=== PATIENT | female | born 1985 | race Caucasian/White ===

== ENCOUNTER 2020-03-20 10:00 | Outpatient (RCR) | payer OTHER ==
[~2020-03-20] VITALS: Ht 162 cm; Wt 97.7 kg
[~2020-03-20 10:00] MED LIST: PRD20T PO
== END 2020-03-20 10:01 | disposition home or self-care (01) ==
LOC: PREOP 10:00
PROVIDERS: ATTEND Surgery
DX: Z01.818 Encounter for other preprocedural examination (principal); A63.0 Anogenital (venereal) warts

== ENCOUNTER 2020-03-26 10:31 | Day surgery (SDC) | payer OTHER ==
[~2020-03-26] VITALS: Ht 162 cm; Wt 97.7 kg
[2020-03-26 10:36] VITALS: BP 137/89
[2020-03-26] MEDS ORDERED: LACTATED RINGERS 1,000 ML IV ONE (10:48)
[2020-03-26] MEDS ORDERED: LACTATED RINGERS 1,000 ML IV STA (10:56)
[2020-03-26] MEDS ORDERED: proPOfol 200 MG/20 ML (DIPRIVAN) VIAL IV ONE ×2 (11:13→11:39)
[2020-03-26] MEDS ORDERED: MIDAZOLAM 2 MG/2 ML (VERSED) VIAL ONE (11:13)
--- NOTE | 2020-03-26 11:29 | Progress Note-Pre Operative ---
Pre-Operative Progress Note H&P Reviewed The H&P was reviewed, patient examined and no changes noted. Date Seen by Provider: Mar 26, 2020 Time Seen by Provider: : Date H&P Reviewed: Mar 26, 2020 Time H&P Reviewed: : Pre-Operative Diagnosis: anogenital lesion DALLAS BANKS DO Mar 26, 2020 11:29
[2020-03-26 12:00] VITALS: BP 99/77
--- NOTE | 2020-03-26 12:09 | Progress Note-Post Operative ---
Post-Operative Progess Note Surgeon (s)/Rice Cleaning Machine Tender (s) Surgeon DALLAS BANKS DO [employer] Cleaning Machine Tender: na Pre-Operative Diagnosis anogenital lesion Post-Operative Diagnosis rectosigmoid polyp, diverticulosis Procedure & Operative Findings Date of Procedure 03/26/20 Procedure Performed/Findings colonoscopy with hot bx polypectomy x 1 Anesthesia Type per mda Estimated Blood Loss Estimated blood loss (mL): none Specimens/Packing Specimens Removed rectosigmoid polyp DALLAS BANKS DO Mar 26, 2020 12:09
--- NOTE | 2020-03-26 12:10 | Discharge Inst-Simple/Standard ---
Discharge Inst-Standard Patient Instructions/Follow Up Plan of Care/Instructions/FU: 2-3 weeks Praneeth Activity as Tolerated: Yes Discharge Diet: Regular Diet (high fiber) DALLAS BANKS DO Mar 26, 2020 12:10
[2020-03-26 12:25] VITALS: BP 133/78
[2020-03-26 12:35] VITALS: BP 133/78
--- NOTE | 2020-03-26 15:11 | Anesthesia-General Post-Op ---
MAC Patient Condition Mental Status/LOC: Same as Preop Cardiovascular: Satisfactory Nausea/Vomiting: Absent Respiratory: Satisfactory Pain: Controlled Complications: Absent Post Op Complications Complications None Follow Up Care/Instructions Patient Instructions None needed. Anesthesiology Discharge Order Discharge Order Patient was seen after the procedure and she was doing well, no complaints, stable vital signs, no apparent adverse anesthesia problems. BRENDAN LINTON DO Mar 26, 2020 15:11
--- NOTE | 2020-03-26 21:46 | OPERATIVE REPORT ---
DATE OF SERVICE: 03/26/2020 PREOPERATIVE DIAGNOSIS: Anogenital lesion. POSTOPERATIVE DIAGNOSIS: Rectosigmoid polyp. PROCEDURE: Colonoscopy with hot biopsy polypectomy. SURGEON: Dallas Dacosta DO ANESTHESIA: Per MDA. ESTIMATED BLOOD LOSS: None. COMPLICATIONS: None. INDICATIONS: The patient is a 34-year-old female with recent anginal lesion that was removed, which made her higher risk for anogenital cancer. She was referred to me due to this for colonoscopy. The patient understands risks and benefits of procedure and wished to proceed with procedure. Consent was signed in the chart. DESCRIPTION OF PROCEDURE: The patient was taken to the endoscopy suite, placed in left lateral recumbent position. Timeout was performed. Digital rectal exam was performed. No palpable polyps, masses or ulcerations. Scope was inserted in the rectum, advanced all the way to cecum with minimal difficulty. Prep was adequate. Scope was then slowly retracted back. There were no polyps, masses or ulcerations within the cecum, ascending, transverse, descending and sigmoid colon. Through the descending and sigmoid colon, a minimal amount of diverticulosis was present. At the rectosigmoid junction, a small polyp was present, which hot biopsy polypectomy was performed. Scope was continuously retracted back into the rectum, where it was also retroflexed noting no other pathology. Scope was returned to its normal position, slowly withdrawn until completely removed. The patient tolerated procedure well without any complications. She was taken to the recovery room in stable condition. RECOMMENDATIONS: The patient to follow up on the pathology in 2 weeks. We would recommend repeat colonoscopy likely in 5 years. If any issues before that, be seen at that time. We would also recommend high fiber diet due to the diverticulosis. Job ID: [id number] DocumentID: [id number] Dictated Date: 03/26/2020 14:29:00 Ic Engineer Date: 03/26/2020 21:45:50 Dictated By: DALLAS DACOSTA DO
== END 2020-03-26 12:35 | disposition home or self-care (01) ==
LOC: ENDO 10:31
PROVIDERS: ATTEND Surgery
DX: K63.5 Polyp of colon (principal); E66.9 Obesity, unspecified; Z68.37 Body mass index [BMI] 37.0-37.9, adult; L40.9 Psoriasis, unspecified; F17.210 Nicotine dependence, cigarettes, uncomplicated; Z88.2 Allergy status to sulfonamides; Z82.49 Family history of ischemic heart disease and other diseases of the circulatory system; Z83.3 Family history of diabetes mellitus
CPT/HCPCS: 84703